=== PATIENT | male | born 1955 | race Caucasian/White ===

== ENCOUNTER 2020-03-08 10:34 | Inpatient (IN) | payer OTHER ==
[~2020-03-08] VITALS: Ht 172.7 cm; Wt 86.1 kg
[~2020-03-08 10:34] MED LIST: FELODIPINE ER10 MG PO; GLUCOPHAGE500 MG PO; HUMULIN N100 U/ML SC; HYDROCODONE-APA1 TAB PO; INDAPAMIDE2.5 MG PO; ZESTRIL20 MG PO; ZOCOR40 MG PO
[2020-03-08 11:02] LABS: BASOPHILS 0.2 % (0-2); EOSINOPHILS 0.8 % (0-7); HEMATOCRIT 26.8 % (42.0-54.0); HEMOGLOBIN 8.3 g/dL (13.5-17.5); IMMATURE GRANULOCYTES 0.4 % (0-5); LYMPHOCYTES 5.1 % (15-50); MCH 26.6 pg (26.0-34.0); MCV 85.9 fL (80.0-100.0); MEAN PLATELET VOLUME 10.6 fL (7.4-10.4); MONOCYTES 7.2 % (2-11); NEUTROPHILS 86.3 % (40-80); PLATELET COUNT 371 10x3/uL (130-400); RBC 3.12 10x6/uL (4.20-6.10); RDW 17.5 % (11.5-14.5); WBC 11.5 10x3/uL (4.8-10.8)
[2020-03-08 11:19] LABS: APTT 45.7 SECONDS (22.8-39.4); INR 1.02 (0.85-1.17); PROTIME 13.3 SECONDS (11.6-15.0)
[2020-03-08 11:22] VITALS: BP 138/61
[2020-03-08 11:39] LABS: ALBUMIN 3.1 g/dL (3.4-5.0); ALKALINE PHOSPHATASE 115 U/L (30-120); ALT (SGPT) 22 U/L (10-68); BILIRUBIN - TOTAL 0.59 mg/dL (0.2-1.3); CALCIUM 7.2 mg/dL (8.5-10.1); CARBON DIOXIDE 19.6 mmol/L (21.0-32.0); CHLORIDE - SERUM 91 mmol/L (98-107); CKMB 7.9 U/L (0.0-3.6); CREATINE KINASE 99 UL (21-232); CREATININE - SERUM 8.1 mg/dL (0.6-1.3); GLUCOSE 137 mg/dL (74-106); MAGNESIUM - SERUM 3.1 mg/dL (1.8-2.4); PROTEIN - SERUM 7.9 g/dL (6.4-8.2); SODIUM 130 mmol/L (136-145); THYROID STIMULATING HORMONE 1.56 uIU/mL (0.36-3.74); eGFR NON AFRICAN AMERICAN 7 mL/min (90-120)
[2020-03-08 11:41] LABS: CALC OSMOLALITY 296 mosm/kg (275-300); TROPONIN-I < 0.017 ng/mL (0.000-0.060)
[2020-03-08 11:42] LABS: POTASSIUM - SERUM 6.3 mmol/L (3.5-5.1); UREA NITROGEN 108 mg/dL (7-18)
--- NOTE | 2020-03-08 11:43 | NUR ---
CRITICAL LABS: BUN 108, K+ 6.3. DR VELA NOTIFIED.
[2020-03-08 12:30] VITALS: BP 130/43
[2020-03-08 13:02] VITALS: BP 120/37
[2020-03-08] MEDS ORDERED: NOVOLOG100 UNIT/1 SC (13:16)
[2020-03-08] MEDS ORDERED: PLAVIX75 MG PO (13:16)
[2020-03-08] MEDS ORDERED: NEURONTIN 300300 MG PO (13:17)
[2020-03-08] MEDS ORDERED: LEVEMIR IN100 UNITS/ SC (13:17)
[2020-03-08] MEDS ORDERED: HYDRALAZINE HCL25 MG PO (13:18)
[2020-03-08] MEDS ORDERED: BUMEX2 MG PO (13:18)
[2020-03-08] MEDS ORDERED: HCTZ25 MG PO (13:19)
[2020-03-08] MEDS ORDERED: TOPROL XL100 MG PO (13:19)
[2020-03-08] MEDS ORDERED: NORVASC10 MG PO (13:19)
[2020-03-08] MEDS ORDERED: COREG 3.1253.125 MG PO (13:20)
[2020-03-08] MEDS ORDERED: ULTRAM50 MG PO (13:20)
[2020-03-08] MEDS ORDERED: AZELASTINE137 MCG/0. NASAL (13:20)
[2020-03-08 14:03] VITALS: BP 135/52
--- NOTE | 2020-03-08 15:49 | NUR ---
REPORT GIVEN TO ROSENDO DEJESUS FROM DIALYSIS. SHE IS TAKING PT TO DIALYSIS AND THEN TO HIS ROOM.
--- NOTE | 2020-03-08 16:01 | NUR ---
RECEIVED REPORT FROM ER. PT TAKEN FROM ER TO DIALYSIS VIA .
--- NOTE | 2020-03-08 17:17 | NUR ---
SPOKE WITH PT'S OVER THE PHONE. MED REC AND HX COMPLETED. SHE STATES PT CURRENTLY HAS SHINGLES AND HAS BEEN ON VALTREX SINCE WEDNESDAY AND BODY IS SCABBED. JEREMIAH ROBBINS CALLED AND SPOKE WITH JOHN DOUBLE END TENONER OPERATOR AND SHE STATES PT DOES NOT NEED TO BE ON ISOLATION.
--- NOTE | 2020-03-08 18:44 | NUR ---
PT RETURNED FROM DIALYSIS. ARIANNA FROM DIALYSIS STATES PT HEMOSPLIT WAS RED AND HAD DRAINAGE AND SHE CALLED [facility] AND GOT BLOOD CULTURE ORDERS. SHE ALSO STATES SHE CHANGED RIGHT CHEST DRESSING. SHE STATES SHE REMOVED 2200 OFF.
[2020-03-08 20:30] VITALS: BP 135/47
--- NOTE | 2020-03-08 22:20 | NUR ---
FSBS 260; PT DECLINING HUMULIN AT THIS TIME, ONLY REQUESTING FOR 40 UNITS LANTUS, "BECAUSE OF MY BLOOD SUGAR BEING 260. I'D RATHER WE TREAT IT IN THE MORNING IF IT'S HIGH INSTEAD OF BOTTOMING OUT TONIGHT." 40 UNITS LANTUS AND PM MEDS ADMINISTERED, PER ORDER. DENIES ANY OTHER NEEDS AT THIS TIME. BED IN LOWEST, SRX2, CALL LIGHT WITHIN REACH. WILL CTM.
[2020-03-09] VITALS (7 sets, daily range): BP systolic 124–142; BP diastolic 52–81; BMI 31.8; BMI 31.7
[2020-03-09 05:10] LABS: BASOPHILS 0.3 % (0-2); EOSINOPHILS 2.9 % (0-7); HEMATOCRIT 23.6 % (42.0-54.0); IMMATURE GRANULOCYTES 0.3 % (0-5); LYMPHOCYTES 11.7 % (15-50); MCH 26.6 pg (26.0-34.0); MCHC 30.9 g/dL (31.0-37.0); MCV 86.1 fL (80.0-100.0); MEAN PLATELET VOLUME 10.4 fL (7.4-10.4); MONOCYTES 10.5 % (2-11); NEUTROPHILS 74.3 % (40-80); PLATELET COUNT 378 10x3/uL (130-400); RBC 2.74 10x6/uL (4.20-6.10); RDW 17.9 % (11.5-14.5)
[2020-03-09 05:11] LABS: HEMOGLOBIN 7.3 g/dL (13.5-17.5); WBC 6.5 10x3/uL (4.8-10.8)
[2020-03-09 05:51] LABS: ANION GAP 22.8 mmol/L (8-16); CALCIUM 7.4 mg/dL (8.5-10.1); CARBON DIOXIDE 20.3 mmol/L (21.0-32.0); MAGNESIUM - SERUM 2.9 mg/dL (1.8-2.4)
[2020-03-09 05:52] LABS: PHOSPHOROUS 10.2 mg/dL (2.5-4.9); POTASSIUM - SERUM 5.1 mmol/L (3.5-5.1)
--- NOTE | 2020-03-09 07:00 | NUR ---
BEDSIDE REPORT RECEIVED. SHIFT ASSESSMENT COMPLETED PER FLOWSHEET, SEE FLOWSHET FOR INFORMATION. PT WALKING FROM BATHROOM TO BED UPON ENTERING ROOM, PT THEN SITS DOWN ON BED FOR ASSESSMENT. PT STATES "I'VE NEVER TOLD ANYBODY THIS, I'VE GOT THE REAL BAD SHAKES. I DON'T KNOW WHY." EXPLAINED THAT I WOULD LET THE DOCTOR KNOW OF THAT AND HE CAN DISCUSS THAT WITH THE DOCTOR. PT AGREES. PT ALSO SIGNED A BLOOD CONSENT. WILL CONT TO MONITOR. NO ACUTE NEEDS/ DISTRESS/PAIN OR DISCOMFORT NOTED AT THIS TIME.
--- NOTE | 2020-03-09 12:26 | NUR ---
PCT ZEE NOTIFED NURSE OF [place] PILL CUT INTO FOURTHS FOUND ON THE FLOOR. PT DENIED KNOWLEDGE OF PILL. PILL DISCARDED INTO TRASH. WILL CONT TO MONITOR.
--- NOTE | 2020-03-09 19:00 | NUR ---
BEDSIDE REPORT RECEIVED, PT CARE ASSUMED. WROTE NAME ON BOARD. PT SITTING UP IN BED WATCHING TV, AAOX4. DENIES ANY NEEDS AT THIS TIME. BED IN LOWEST, SRX1, CALL LIGHT WITHIN REACH. WILL CTM.
[2020-03-10 00:30] VITALS: BP 134/49
[2020-03-10 04:30] VITALS: BP 157/63
--- NOTE | 2020-03-10 13:11 | NUR ---
PT REMAINS IN DILAYSIS AT THIS TIME. OCCULT STOOL COLLECTED. PT REQUESTED TO KNOW IF HE MIGHT GO HOME TOMORROW. ADVISED PT THIS WILL NEED TO BE DETERMINED BY MD. NO ACUTE DISTRESS PT TALKING TO FRIENDS/FAMILY ON HIS CELL PHONE, AMBULATED WITH STANDBY ASSIST TO BATHROOM THIS AM.
[2020-03-10 15:00] LABS: BILIRUBIN NEGATIVE (NEGATIVE); GLUCOSE NEGATIVE (NEGATIVE); KETONE NEGATIVE (NEGATIVE); NITRITE NEGATIVE (NEGATIVE); SPECIFIC GRAVITY 1.025 (1.005-1.020); UROBILINOGEN NORMAL (NORMAL)
[2020-03-10 15:11] VITALS: BP 124/60
[2020-03-10 15:26] LABS: UDS - AMPHET NEGATIVE QUAL (NEGATIVE); UDS - BARB NEGATIVE QUAL (NEGATIVE); UDS - BENZO NEGATIVE QUAL (NEGATIVE); UDS - COCAINE NEGATIVE QUAL (NEGATIVE); UDS - OPIATE POSITIVE QUAL (NEGATIVE); UDS - PCP NEGATIVE QUAL (NEGATIVE); UDS - THC NEGATIVE QUAL (NEGATIVE)
[2020-03-10 17:55] VITALS: BP 158/63
--- NOTE | 2020-03-10 19:30 | NUR ---
BEEN TO PT ROOM A FEW TIMES NOW PT IS ALERT AND MANY NEEDS SEEN TOO BED IS LOW AND LOCKED FE STILL INFUSING INTO VEIN CALL LIGHT IS WITH PT
[2020-03-10 20:30] VITALS: BP 146/81
[2020-03-11 04:30] VITALS: BP 126/52
--- NOTE | 2020-03-11 05:55 | NUR ---
opost d50 bs is 165
--- NOTE | 2020-03-11 06:02 | NUR ---
glucose now 140 pt waking up will offer juice
--- NOTE | 2020-03-11 06:06 | NUR ---
pt talking now and consuming juice
[2020-03-11 06:34] LABS: HEMATOCRIT 27.2 % (42.0-54.0); HEMOGLOBIN 8.6 g/dL (13.5-17.5); LYMPHOCYTES 14.7 % (15-50); MCH 27.6 pg (26.0-34.0); MCHC 31.6 g/dL (31.0-37.0); MCV 87.2 fL (80.0-100.0); NEUTROPHILS 73.8 % (40-80); PLATELET COUNT 384 10x3/uL (130-400); RBC 3.12 10x6/uL (4.20-6.10); WBC 9.3 10x3/uL (4.8-10.8)
[2020-03-11 06:47] LABS: ANION GAP 16.4 mmol/L (8-16); CARBON DIOXIDE 24.1 mmol/L (21.0-32.0); CREATININE - SERUM 4.5 mg/dL (0.6-1.3); POTASSIUM - SERUM 4.5 mmol/L (3.5-5.1)
--- NOTE | 2020-03-11 07:12 | NUR ---
pt is now completely alert states he will be sure to eat breakfast
[2020-03-11 09:51] VITALS: BP 170/56
--- NOTE | 2020-03-11 10:09 | NUR ---
REPORT RECIEVED. PT SITTING SEMI FOWLERS IN BED. RR EVEN AND UNLABORED ON 2L. HE HAS A R FA PIV THAT IS SL. BED LOCKED AND IN LOWEST POSITION,CALL LIGHT WITHIN REACH. WILL CTM.
[2020-03-11 13:18] VITALS: BP 128/59
--- NOTE | 2020-03-11 16:23 | NUR ---
I have reviewed this patient and I concur with the Shift Assessment completed by the Licensed Practical Nurse today this shift.
[2020-03-11 17:26] LABS: APTT 45.6 SECONDS (22.8-39.4); INR 1.03 (0.85-1.17); PROTIME 13.5 SECONDS (11.6-15.0)
--- NOTE | 2020-03-11 19:10 | NUR ---
PT IS BACJK FROM DIALYSIS AND UP ABOUT ROOM ALERT AND OX4 BED LOW AND LOCKED CALL LIGHT PROVIDED WILL GET CONSENTS SIGNED FOR TOMORROWS PROCEDURE
--- NOTE | 2020-03-11 20:15 | NUR ---
REFUSING BS CHECK AND INSULINES STATING HE IS NOT GOING TO BOTTOM OUT AGAIN
[2020-03-11 21:51] VITALS: BP 135/51
[2020-03-12] VITALS (57 sets, daily range): BP systolic 19–156; BP diastolic 38–76; Ht 172.7 cm; Wt 86.1 kg
--- NOTE | 2020-03-12 03:03 | NUR ---
I have reviewed this patient and I concur with the Shift Assessment completed by the Licensed Practical Nurse today this shift.
[2020-03-12 06:14] LABS: ANION GAP 17.3 mmol/L (8-16); CALCIUM 8.2 mg/dL (8.5-10.1); CARBON DIOXIDE 22.2 mmol/L (21.0-32.0); CREATININE - SERUM 4.3 mg/dL (0.6-1.3); POTASSIUM - SERUM 4.5 mmol/L (3.5-5.1)
--- NOTE | 2020-03-12 07:30 | NUR ---
REPORT RECIEVED. PT SITTING UP IN BED. RR EVEN AND UNLABORED ON 3.5L NC. PT HAS A R FA PIV THAT IS SL. HE IS A LEFT ARM RESERVE FOR A FUTURE FISTULA. HE HAS A R CHEST HEMO SPLIT. HE HAS BEEN NPO SINCE MIDNIGHT FOR A PROCEDURE WITH THIS MORNING. BED LOCKED AND IN LOWEST POSITION, CALL LIGHT WITHIN REACH. WILL CTM
--- NOTE | 2020-03-12 08:10 | NUR ---
PRE-OP MEDS GIVEN AND PT TAKEN TO SURGERY AT THIS TIME.
--- NOTE | 2020-03-12 09:33 | NUR ---
Nutrition follow-up: Pt to ICU from M2 s/p endarterectomy Remains NPO Labs reviewed PO intake pre-surgery of renal ADA diet was 100% x 3 meals Wt: 206# +BM RDN following.
--- NOTE | 2020-03-12 11:37 | NUR ---
PT ARRIVED IN THE UNIT. PT HOOKED TO ICU MONTITORS. FIRST DEGREE BLOCK NOTED. BP STABLE. PT ON CLEVIPREX AND PIOTR FOR BLOOD PRESSURE. RIGHT ANTERIOR NECK INCISION C/D/I. JABARI DRAIN NOTED AND COMPRESSED WITH BLOODY DRAINAGE NOTED. RIGHT SUBCLAVIAN HEMOSPLIT C/D/I. RIGHT RADIAL JANI NOTED WITH A GOOD WAVE FORM. WRIST PROTECTORE ON. FC NOTED WITH CLEAR, YELLOW URINE. TRACHEA MIDLINE. PT VERY RESTLESS AND BEING UNCORAPERATIVE AT THIS TIME. ATTEMPTED TO REORIENT THE PT. NO SUCESS. WILL STAY WITH PT FOR 1:1. CALL LIGHT IN [facility]. WILL CONT POC.
--- NOTE | 2020-03-12 11:50 | NUR ---
PT PLACED ON THE BIPAP.
--- NOTE | 2020-03-12 12:00 | NUR ---
PT VSS. WAKING UP AND STILL CONFUSED BUT MORE COOPERATIVE WILL CONT PO
--- NOTE | 2020-03-12 12:30 | NUR ---
PIOTR INITIATED AND CLEVIPREX AND NITRO OFF.
--- NOTE | 2020-03-12 12:53 | NUR ---
PIOTR TURNED OFF. PT AWAKE AND COOPERATIVE. PT SLIGHTLY DROWSEY. PT MOVING ALL EXTRIMITIES WITH NO ISSUES. FACE AND SMILE SYMTRICAL. TRACHEA MIDLINE. PT REMAINS ON BIPAP. CAME AND LEFT THE PTS BEDSIDE. WILL CONT POC.
--- NOTE | 2020-03-12 13:22 | NUR ---
SPOKE WITH DR ESTRADA'S NURSE, CHUY, ABOUT THE ABT. SHE STATED TO ASK MARIA TERESA. PHARMACY CALLED AND PHARMASIST STATED ITS OK FOR IV ANCEF TODAY AND TO ASK DR ESTRADA ABOUT TOMMORROW DOSE. OK FOR PO CLEOCIN.
--- NOTE | 2020-03-12 13:27 | NUR ---
PT AWAKE. VSS. BECOMING MORE AWAKE AND ALERT.
[2020-03-12 14:46] LABS: PLT FUNCT.(P2Y12) PLAVIX 252 PRU (194-418)
--- NOTE | 2020-03-12 16:29 | NUR ---
PT TAKEN OFF BIPAP AND PLACED ON 4L VIA NC. PT TOLERATING WELL. PT TOLERATING ICE CHIPS WELL. WILL CONT POC.
--- NOTE | 2020-03-12 16:54 | NUR ---
DR ESTRADA IN THE UNIT. OK TO GIVE PO LOPRESSOR NOW.
--- NOTE | 2020-03-12 19:00 | NUR ---
Tolerates assessment. No issues. Neuro checks intact. SR up x 2. Bed in low position with call light in reach.
--- NOTE | 2020-03-12 21:00 | NUR ---
No needs at this time. No changes noted. SR up x 2. Bed in low position. Call light in reach.
--- NOTE | 2020-03-12 23:00 | NUR ---
Resting without distress. SR up x 2. Bed low position. Call light in reach.
[2020-03-13] VITALS (95 sets, daily range): BP systolic 105–166; BP diastolic 40–85
--- NOTE | 2020-03-13 | NUR ---
No changes. Resting well. Call light in reach
--- NOTE | 2020-03-13 02:00 | NUR ---
RESTING QUIETLY. ALARMS WITH PARAMETERS SET TO HEMODYNAMIC MONITORS THIS SHIFT. VSS. SR UP X 2. BED IN LOW POSITION.
[2020-03-13 03:43] LABS: BASOPHILS 0.2 % (0-2); EOSINOPHILS 2.7 % (0-7); HEMATOCRIT 27.4 % (42.0-54.0); HEMOGLOBIN 8.5 g/dL (13.5-17.5); IMMATURE GRANULOCYTES 0.3 % (0-5); LYMPHOCYTES 8.2 % (15-50); MCH 27.1 pg (26.0-34.0); MCV 87.3 fL (80.0-100.0); MEAN PLATELET VOLUME 9.5 fL (7.4-10.4); NEUTROPHILS 79.6 % (40-80); PLATELET COUNT 385 10x3/uL (130-400); RBC 3.14 10x6/uL (4.20-6.10); RDW 16.8 % (11.5-14.5)
[2020-03-13 03:59] LABS: ANION GAP 17.1 mmol/L (8-16); CALCIUM 8.5 mg/dL (8.5-10.1); CREATININE - SERUM 5.1 mg/dL (0.6-1.3); POTASSIUM - SERUM 5.1 mmol/L (3.5-5.1)
--- NOTE | 2020-03-13 04:00 | NUR ---
RESTING WELL. SR UP X 2. CALL LIGHT IN REACH. BED IN LOW POSITION
--- NOTE | 2020-03-13 05:00 | NUR ---
RESTING WITH SR UP X 2. CALL LIGHT IN REACH
--- NOTE | 2020-03-13 07:00 | NUR ---
PT REPORT RECEIVED FROM ICT DEVELOPMENT MANAGER NURSE. NO ACUTE SIGNS OF DISTRESS NOTED. SHIFT ASSESSMENT COMPLETED. PT TRANSFERRED TO BEDSIDE CHAIR. TOLERATED WELL. SLIGHT WEAKNESS NOTED. WILL CONTINUE TO MONITOR
--- NOTE | 2020-03-13 08:37 | NUR ---
DR ESTRADA IN ROOM. UPDATE GIVEN. NEW ORDER RECEIVED TO D/C ARTERIAL LINE AND KEITH. WANTS PT BACK IN BED AFTER BREAKFAST TO REMOVE JABARI DRAIN.
--- NOTE | 2020-03-13 09:13 | OP ---
PATIENT NAME: FLORIDALMA LIMA MEDICAL RECORD: [id number] :55 LOCATION[facility] [id number] ADMISSION DATE:03/10/20 SURGEON: ENRICO ESTRADA MD DATE OF OPERATION: 03/12/2020 SURGEON: Enrico Estrada MD STRAIGHTENER: Dino Mullins MD PROCEDURE PERFORMED: Right carotid endarterectomy. PREOPERATIVE DIAGNOSIS: Right carotid stenosis with syncope. POSTOPERATIVE DIAGNOSIS: Right carotid stenosis with syncope. ANESTHESIA: General endotracheal anesthesia. ESTIMATED BLOOD LOSS: 10 cc. COMPLICATIONS: None. SPECIMENS: Carotid plaque. CONDITION: Stable. DISPOSITION: ICU. OPERATIVE FINDINGS: 1. Thick neck. 2. Upward retraction on the hypoglossal nerve for exposure of the distal internal carotid. 3. Discrete near circumferential calcification of the internal carotid and extended about 2 cm up, but the plaque feathered well and a CorMatrix patch was used for closure. 4. Neurologically intact to recovery room, no change of EEG during the case. INDICATIONS: The patient with 2 episodes of syncope and severe right carotid stenosis. DESCRIPTION OF PROCEDURE: The patient was brought to the operating suite. General anesthesia was obtained, the patient prepped and draped. An oblique incision made in the right neck, taken down through subcutaneous tissue and muscle layers. The common carotid was dissected out. Two large facial venous branch were divided between ligatures and suture ligatures. The common carotid was dissected out and encircled with a loop. The external carotid and thyroid branch were dissected out, encircled with vessel loops. The hypoglossal nerve was over the internal carotid; therefore, the ANSA was clipped and divided allowing upward retraction of the hypoglossal nerve and upward retraction of his jaw to expose the distal internal carotid, which was soft. Heparin was given. After heparin circulated backbleeding of the internal carotid was controlled with a bulldog clamp. Backbleeding on the external carotid and thyroid branch were controlled with the vessel loops and inflow was controlled with a vascular clamp. EEG remained normal and the cerebral oximetry initially fell, but responded to increasing the blood pressure to 140-160 systolic. After opening the carotid artery, excellent back bleeding from the internal carotid was noted. OPERATIVE REPORT [id number] FLORIDALMA LIMA The arteriotomy begun in the common carotid artery taken out to the region of plaque into a region of normal internal carotid. The plaque was divided and the common carotid with an eversion endarterectomy of the external carotid and then distally, the plaque feathered well. Thorough irrigation was taken. All bits of loose debris were removed. A CorMatrix patch was fashioned to appropriate size and sutured along the edge of the arteriotomy and prior to completion of the anastomosis, backbleeding was off all 3 major vessels and the endarterectomy bed was again thoroughly flushed and anastomosis completed, flow restored first to the external carotid and then to the internal carotid. Interrupted sutures were used for bleeding sites. Protamine was given. Thorough irrigation was undertaken. A drain was placed through a separate stab wound. Neck was closed in 3 layers including Dermabond on the skin. Anesthesia reversed. The patient was neurologically intact to ICU. TRANSINT:[id number] Voice Confirmation ID: [id number] DOCUMENT ID: [id number] ENRICO ESTRADA MD at 0913 CC: ISABEL LEWIS DO [id number] DICTATION DATE: 03/12/20 1147 ELECTRICAL INSTRUMENT REPAIRER: 03/12/20 2156 ADM IN [facility] [address] [place] [address]
--- NOTE | 2020-03-13 09:42 | NUR ---
KEITH AND ARTERIAL LINE D/C. PT TOLERATED WELL. WILL CONTINUE TO MONITOR
--- NOTE | 2020-03-13 11:00 | NUR ---
PT RESTING IN BED. NO ACUTE SIGNS OF DISTRESS NOTED. HELPED PT UP IN CHAIR TO EAT LUNCH. TOLERATED WELL. STILL LITTLE WEAK. REASSESSMENT COMPLETED. WILL CONTINUE TO MONITOR
--- NOTE | 2020-03-13 13:45 | NUR ---
DR ESTRADA IN ROOM. PULLED JABARI DRAIN FROM RT NECK. PT TOLERATED WELL. BLEEDING NOTED. DR ESTRADA HOLDING PRESSURE. BLEEDING NOT SLOWING SO DR ESTRADA PLACED SUTURE IN DRAIN SITE. LEFT CEA OPEN TO AIR. ELASTIC TAPE WITH GAUZE PLACED ON SUTURE SITE. DR ESTRADA STATED THAT IF PT BEGINS BLEEDING AGAIN DURING DIAYLYSIS TO NOTIFY HIM. WILL CONTINUE TO MONITOR
--- NOTE | 2020-03-13 13:48 | NUR ---
RT IN ROOM. BIPAP ALARM GOING OFF. NEW LARGE MASK OBTAINED AND PLACED ON PT. NO AIRLEAK NOTED. WILL CONTINUE TO MONITOR. PT OFF BIPAP RESTING WITH NASAL CANNULA NOW.
--- NOTE | 2020-03-13 15:00 | NUR ---
PT RESTING IN BED. REASSESSMENT COMPLETED. NO COMPLAINTS NOTED AT THIS TIME. WAITING FOR DIALYSIS. WILL CONTINUE TO MONITOR
--- NOTE | 2020-03-13 17:06 | NUR ---
HEMOSPLIT WILL PUSH, BUT UNABLE TO PULL FROM EITHER SIDE, UNABLE TO DO DIALYSIS. OBTAINED ORDER FOR ACTIVASE, DWELL FOR 30 MIN AND ATTEMPT HD AGAIN.
--- NOTE | 2020-03-13 17:42 | NUR ---
DIALYSIS NURSE IN ROOM. GIVING ACTIVASE TO OPEN HD LINE. WILL CONTINUE TO MONITOR
--- NOTE | 2020-03-13 18:22 | NUR ---
SPOKE WITH DR LEWIS ABOUT PT HYPOGLYCEMIA. STATED TO ON GIVE MAX OF 10 UNITS OF INSULIN AT BEDTIME. IF BLOOD SUGAR IS IN 150'S RANGE DO NOT GIVE LANTUS. WILL NOTIFY DR LEWIS OF BLOOD SUGAR RECHECK. WILL CONTINUE TO MONITOR
--- NOTE | 2020-03-13 18:35 | NUR ---
DO NOT GIVE ANY MEDS THROUGH THE HEMOSPLIT PER DIALYSIS NURSE. SHE HAS ACTIVASE IN LINES TO HELP OPEN THEM UP.
--- NOTE | 2020-03-13 18:47 | NUR ---
DWELLED ACTIVASE FOR 30 MIN IN EACH LUMEN OF HEMOSPLIT, STILL UNABLE TO PERFORM DIALYSIS, SPOKE TO DR. LEWIS, ORDERED ACTIVASE TO DWELL OVERNIGHT AND ATTEMPT HD AGAIN TOMORROW.
--- NOTE | 2020-03-13 19:00 | NUR ---
assessment complete. Bed in low position. SR up x 2. See IV flow sheet for infusing medications to right forearm. Call light in reach. Patient lungs with crackles. Will notify .
--- NOTE | 2020-03-13 19:15 | NUR ---
DR LEWIS REPLIED TO TEXT ABOUT PT BLOOD SUGAR RECHECK. ORDER RECEIVED TO NOT GIVE LANTUS IF BLOOD SUGAR IS LESS THAN 150. RELAYED TO PRACTICE OFFICE ASSOCIATE NURSE ART.
--- NOTE | 2020-03-13 19:18 | NUR ---
ACTIVASE DWELLING TO BOTH LUMENS OF PATIENT'S DIALYSIS LINE, WRAPPED IN GUAZE AND TAPE AND LABELED "ACTIVASE."
--- NOTE | 2020-03-13 21:00 | NUR ---
SR x2. pt in low position. Alarms on and set. Call light in reach. No change since previous assessment.
--- NOTE | 2020-03-13 23:00 | NUR ---
Resting with VSS. IV infusion. See IV Flow Sheet. Alarms on with parameters set. Bed in low position with call light in reach.
[2020-03-14] VITALS (87 sets, daily range): BP systolic 114–175; BP diastolic 40–89
--- NOTE | 2020-03-14 01:00 | NUR ---
IV catheter dislodged from Right forearm during repositioning. 20 gauge Catheter intact. Inserted new 20 gauge IV catheter to right wrist x 1 attempt. Tolerates well. SR up x 2. Bed in low position.
--- NOTE | 2020-03-14 02:00 | NUR ---
NO CHANGE IN ASSESSMENT. BED IN LOW POSITION. SR UP X 2 CALL LIGHT IN REACH
--- NOTE | 2020-03-14 03:00 | NUR ---
RESTING WITHOUT COMPLAINTS. SR UP X 2 BED IN LOW POSITION. CALL LIGHT IN REACH.
--- NOTE | 2020-03-14 05:00 | NUR ---
RESTING WITH NO DISTRESS NOTED. SR UP X 2. LABS DRAWN. BED IN LOW POSITION. CALL LIGHT IN REACH
[2020-03-14 05:34] LABS: ANION GAP 17.5 mmol/L (8-16); CALCIUM 8.9 mg/dL (8.5-10.1); CARBON DIOXIDE 22.1 mmol/L (21.0-32.0); CREATININE - SERUM 5.8 mg/dL (0.6-1.3); POTASSIUM - SERUM 4.6 mmol/L (3.5-5.1)
--- NOTE | 2020-03-14 07:36 | NUR ---
Nutrition follow-up: Pts diet changed to renal ADA consistent CHO due to elevated PO4. PO intake ~50% of last 3 meals Unable to perform dialysis 03/13 2/2 lines would not draw; attempting today Wt: 201# Last BM charted 03/09; will inform nurse RDN following.
--- NOTE | 2020-03-14 08:00 | NUR ---
PT LYING IN BED AWAKE AND CONFUSED AT THIS TIME. PT ALERT TO SELF ONLY, REORIENTATION PROVIDED. PT STATED HE THOUGHT HE WAS IN [facility], THAT IT IS 2013, AND HE IS HERE BECAUSE OF A FALL. WHEN REORIENTATION WAS PROVIDED PT NODDED HEAD AND STATED, "OH, OKAY." PT ALSO AT THIS TIME C/O NEEDING TO URINATE AND WAS ATTEMPTING TO GET OUT OF BED UNASSISTED TO FIND A BATHROOM. PT ASSISTED BACK IN BED, TOTAL LINEN CHANGE PROVIDED. URINAL PROVIDED. PT NOW LYING IN BED CALM. DR LEWIS AT BEDSIDE, ORDERS RECIEVED. WILL CONTINUE PLAN OF CARE.
--- NOTE | 2020-03-14 08:45 | NUR ---
PT SITTING UP IN BED 90 DEGREES. ADMIN MEDS CRUSHED IN APPLESAUCE, PT TOLERATED WELL. THEN GAVE PT A SIP OF WATER, HE NOTED TO HAVE MUCH COUGHING AFTER SIP OF WATER. PT ABLE TO COUGH UP SOME OF THE WATER WITH ASSIST FROM YAUNKER. DR LEWIS NOTIFIED OF THIS, ORDERS RECIEVED FOR CHEST XR, SPEECH SWALLOW EVAL, ABG. ALSO NOTED WILL HOLD PTS MEALS UNTIL SWALLOW EVAL. ALSO WILL HOLD LANTUS PER DR LEWIS ORDERS. VSS. WILL CONTINUE PLAN OF CARE.
[2020-03-14 09:46] LABS: BASOPHILS 0.2 % (0-2); EOSINOPHILS 1.5 % (0-7); HEMATOCRIT 25.7 % (42.0-54.0); HEMOGLOBIN 7.9 g/dL (13.5-17.5); IMMATURE GRANULOCYTES 0.2 % (0-5); LYMPHOCYTES 6.2 % (15-50); MCH 27.6 pg (26.0-34.0); MCHC 30.7 g/dL (31.0-37.0); MEAN PLATELET VOLUME 10.6 fL (7.4-10.4); NEUTROPHILS 80.9 % (40-80); PLATELET COUNT 418 10x3/uL (130-400); RBC 2.86 10x6/uL (4.20-6.10); RDW 17.4 % (11.5-14.5)
[2020-03-14 09:49] LABS: MCV 89.9 fL (80.0-100.0); WBC 18.8 10x3/uL (4.8-10.8)
--- NOTE | 2020-03-14 10:15 | NUR ---
PER DR LEWIS, WILL HD TODAY. NO ACUTE DISTRESS NOTED. PT STATES HE NEEDS TO URINATE, URINAL PROVIDED, NO VOID NOTED. DR LEWIS NOTIFIED. WILL CONTINUE PLAN OF CARE.
--- NOTE | 2020-03-14 11:21 | NUR ---
SPEECH THERAPIST IN ROOM PERFORMING SWALLOW EVAL.
--- NOTE | 2020-03-14 11:26 | NUR ---
PER SPEECH, KEEP PT NPO.
--- NOTE | 2020-03-14 11:35 | NUR ---
UNABLE TO GIVE ANY PO MEDS SINCE PT NPO AFTER SPEECH SWALLOW EVAL.
--- NOTE | 2020-03-14 13:49 | NUR ---
SITTING UP IN BED RESTING AT THIS TIME. RESPIRATIONS STEADY AND UNLABORED. AWAKENS EASILY WHEN SPOKEN TO. FAMILY AT BEDSIDE. VSS. WILL CONTINUE PLAN OF CARE.
--- NOTE | 2020-03-14 15:12 | NUR ---
UP IN CHAIR RECIEVING DIALYSIS AT THIS TIME. NO ACUTE DISTRESS NOTED. VSS. CLEVIPREX TITRATED TO ORDER. SEE IV FLOWSHEET. WILL CONTINUE PLAN OF CARE.
--- NOTE | 2020-03-14 16:29 | NUR ---
PT NOTED TO SLIDE DOWN IN CHAIR AT THIS TIME. ASSISTED BACK UP IN CHAIR WITH ASSIST FROM OTHER STAFF MEMBERS. PT NOW SITTING UP IN CHAIR. DENIES ANY NEEDS. SPOKE WITH PTS ON PHONE AFTER CALL IN CODE VERIFIED, UPDATES PROVIDED. NO ACUTE DISTRESS NOTED. WILL CONTINUE PLAN OF CARE.
[2020-03-14 17:28] LABS: MAGNESIUM - SERUM 2.2 mg/dL (1.8-2.4); POTASSIUM - SERUM 3.4 mmol/L (3.5-5.1)
--- NOTE | 2020-03-14 17:46 | NUR ---
NOTED PT TO START TO SHOW PVC ON EKG. K RECHECKED AND NOTED AT 3.4. PER DR LEWIS, ADMIN 20MEQ K IV. WILL CONTINUE PLAN OF CARE.
--- NOTE | 2020-03-14 18:42 | NUR ---
ASSISTED BACK TO BED FROM BEDSIDE CHAIR. PT REQUESTED TO USE TOILET, NOTED 5ML FARHANA URINE. EKATERINA CARE PROVIDED. PT SITTING UP IN BED. DENIES ANY NEEDS. WILL CONTINUE PLAN OF CARE.
--- NOTE | 2020-03-14 19:20 | NUR ---
PT ALERT, CONFUSED, O2 @ 4L VIA N/C, LUNGS WITH CRACKLES, RIGHT HAND PIV INTACT WITH PLASMALYTE @ KVO, INCONTINENT OF URINE, SCD'S TO BILAT LOWER LEGS, VITALS STABLE
--- NOTE | 2020-03-14 21:00 | NUR ---
SON PRESENT AT BEDSIDE, PT REQUESTS BIPAP AFTER MEDS GIVEN, WILL CONT TO MONITOR
--- NOTE | 2020-03-14 23:15 | NUR ---
PT SLEEPING WITH BIPAP IN USE, NO DISTRESS NOTED
[2020-03-15] VITALS (22 sets, daily range): BP systolic 97–144; BP diastolic 37–59
--- NOTE | 2020-03-15 03:00 | NUR ---
PT AWAKE, TRYING TO GET UP, STATES HE NEEDS TO VOID, REMINDED PT TO USE CALL LIGHT FOR ASSIST, ASSISTED TO SIDE OF BED, VOIDED 200CC, RETURNED TO BED WITH N/C IN USE
--- NOTE | 2020-03-15 05:00 | NUR ---
PT BATHED PER STAFF, ASSISTED UP TO CHAIR AT BEDSIDE, RT PRESENT, PT PULLED 1100 ON I.S., NO DISTRESS NOTED
[2020-03-15 05:46] LABS: ANION GAP 17.3 mmol/L (8-16); CALCIUM 8.7 mg/dL (8.5-10.1); CARBON DIOXIDE 24.2 mmol/L (21.0-32.0); CREATININE - SERUM 4.6 mg/dL (0.6-1.3); VANCOMYCIN - RANDOM 9.9 ug/mL (10.0-20.0)
[2020-03-15 05:53] LABS: POTASSIUM - SERUM 4.5 mmol/L (3.5-5.1)
--- NOTE | 2020-03-15 07:52 | NUR ---
PT SITTING UP IN CHAIR. ASSISTED WITH REPOSITIONING AND ADDED A THICK PADDING TO CHAIR. PT STATES THAT HE IS MORE COMFORTABLE.
--- NOTE | 2020-03-15 10:43 | NUR ---
ST HERE ON ROUNDS THIS AM. ST RECOMENDATIONS TO KEEP STRICT NPO.
--- NOTE | 2020-03-15 11:16 | NUR ---
Nutrition Follow-up: POD [address] recs strict NPO with NGT for nutrition and meds. HD yesterday. Diet: NPO Wt: 197.3# (03/15); 205.1# (03/12) Last recorded BM: 03/08 Labs noted: Na 135, K+ 4.5, Glu 132 Meds noted: Protonix, Colace, Phoslo -If pt to remain NPO, rec start Nepro @ 20 and increase slowly to goal rate of 45 with flushes per MD. -Monitor wt. -RD following.
--- NOTE | 2020-03-15 11:23 | NUR ---
ASSISTED PT TO BSC FOR BM. NO BM. ASSISTED TO BED FOR HD NURSE IS HERE.
--- NOTE | 2020-03-15 12:41 | NUR ---
DR GONZALEZ HERE ON ROUNDS.
--- NOTE | 2020-03-15 14:31 | NUR ---
HD IN PROGRESS. PT ALVIN WELL.
--- NOTE | 2020-03-15 15:35 | NUR ---
HD COMPLETE. 2.5 L TAKEN OFF DURING HD. PT OOB TO BSC FOR BM.
--- NOTE | 2020-03-15 16:16 | NUR ---
Rehab Prescreening Consult recieved and the chart has been reviewed. He is [employer] insurance and will require a preauth. He will need a PT and an OT eval before information can be submitted for insurance review. Shanon Kyle RN Clinical liaison, Rehab
--- NOTE | 2020-03-15 16:51 | NUR ---
JHONNY 12FR TO Lia ORANTES. CHRISSIE ORDERED.
--- NOTE | 2020-03-15 21:00 | NUR ---
EVENING MEDS GIVEN ORDERED, MEDS THAT COULD BE WERE PLACED DOWN DOBHOFF, FSBS 205, 50 UNITS LANTUS GIVEN SUBQUE TO RIGHT ARM, PT TOLERATED WELL, BP STABLE, PT DENIES PAIN OR NEEDS, WILL MONITOR CLOSELY FOR CHANGES.
--- NOTE | 2020-03-15 23:45 | NUR ---
REASSESSMENT COMPLETED, RT AT BS PLACING PATIENT ON BIPAP @ 28%, PT TOLERATED WELL, ROUTINE MEDS GIVEN AT THIS TIME, WILL MONITOR FOR CHANGES.
[2020-03-16] VITALS (24 sets, daily range): BP systolic 101–165; BP diastolic 42–80
--- NOTE | 2020-03-16 | NUR ---
PT REQUESTING TO SIT UP IN BED, RAISED HOB, PT WANTING BIPAP MASK REMOVED, STATES " I AM CHOKING", WET SOUNDING COUGH NOTED WITH BIPAP OFF AND 4 LITERS NC REAPPLIED, PT WANTS TO SIT ON SIDE OF BED FOR NOW, BS TABLE IN FRONT OF PT, INSTRUCTED TO CALL BEFORE ATTEMPTING TO LAY BACK DOWN, VERBALIZES UNDERSTANDING, CALL LIGHT IN REACH.
--- NOTE | 2020-03-16 00:15 | NUR ---
PT ASSISTED UP TO BSC, CALL LIGHT IN REACH.
--- NOTE | 2020-03-16 00:40 | NUR ---
PT ASSISTED BACK TO BED AFTER MEDIUM FORMED BM, REPOSITIONED UP IN BED FOR COMFORT, PT DENIES NEEDS, SR UP X 2, BED IN LOW POSITION, CALL LIGHT IN REACH.
--- NOTE | 2020-03-16 03:00 | NUR ---
REASSESSMENT COMPLETED, PT RESTING ON BIPAP AT 28%, BP STABLE, NO CHANGES FROM PREVIOUS ASSESSMENT.
--- NOTE | 2020-03-16 05:45 | NUR ---
PT REQUESTING TO GET OOB TO CHAIR, REFUSED A BATH AT THIS TIME, ASSISTED X 1 TO CHAIR, CLEAN YANKEUR AND SPUTUM CULTURE CONTAINER GIVEN TO PT TO PROVIDE A SPUTUM SAMPLE, WARM BLANKET PROVIDED, CALL LIGHT IN REACH.
[2020-03-16 06:25] LABS: BASOPHILS 0.4 % (0-2); EOSINOPHILS 1.8 % (0-7); HEMATOCRIT 29.1 % (42.0-54.0); HEMOGLOBIN 8.6 g/dL (13.5-17.5); IMMATURE GRANULOCYTES 0.3 % (0-5); LYMPHOCYTES 8.6 % (15-50); MCHC 29.6 g/dL (31.0-37.0); MCV 91.2 fL (80.0-100.0); MEAN PLATELET VOLUME 10.4 fL (7.4-10.4); MONOCYTES 8.8 % (2-11); NEUTROPHILS 80.1 % (40-80); PLATELET COUNT 454 10x3/uL (130-400); RBC 3.19 10x6/uL (4.20-6.10); RDW 17.3 % (11.5-14.5); WBC 13.9 10x3/uL (4.8-10.8)
[2020-03-16 06:40] LABS: CALCIUM 8.6 mg/dL (8.5-10.1); CARBON DIOXIDE 26.3 mmol/L (21.0-32.0); CREATININE - SERUM 4.8 mg/dL (0.6-1.3); POTASSIUM - SERUM 4.3 mmol/L (3.5-5.1); VANCOMYCIN - RANDOM 15.1 ug/mL (10.0-20.0)
--- NOTE | 2020-03-16 07:45 | NUR ---
UP IN CHAIR. SEE FLOWSHEET FOR ASSESSMENT.
--- NOTE | 2020-03-16 07:45 | NUR ---
IV R WRIST ERYTHEMATOUS. IV STARTED IN R HAND ON 1ST ATTEMPT WITH 2OG. SITE DRESSED WITH TEGADERM.
--- NOTE | 2020-03-16 11:15 | NUR ---
ASSISTED TO BEDSIDE COMMODE. BM. ASSISTED BACK TO BED. BUTTOCKS ERYTHEMATOUS.
--- NOTE | 2020-03-16 15:00 | NUR ---
ASSISTED UP TO CHAIR. AMBULATES WITH MINIMAL ASSISTANCE.
--- NOTE | 2020-03-16 17:29 | NUR ---
FULL STRENGTH NEPRO STARTED VIA DOBHOFF AT 10CC/HR.
--- NOTE | 2020-03-16 19:20 | NUR ---
REPORT REC'D AND CARE ASSUMED, REC'D PT RESTING IN BED WATCHING TV, AWAKE, ALERT, AND ORIENTED X 3, DISORIENTED TO CURRENT YEAR, BUT KNEW HIS WIFES BIRTHDAY IS TOMORROW, RIGHT HAND PIV SALINE LOCKED, BLOODY DRAINAGE NOTED UNDER DRSG, RIGHT NECK INCISION OPEN TO AIR, NO DRAINAGE NOTED, CM-SR, PT DENIES PAIN OR NEEDS.
--- NOTE | 2020-03-16 21:00 | NUR ---
PT ASSISTED UP TO BATHROOM, PT THOUGHT HE NEEDED TO HAVE A BOWEL MOVEMENT, BUT PASSED GAS ONLY, BACK TO BE AND REPOSITIONED UP FOR COMFORT, PT COMPLAINS OF A SORE THROAT, EVENING MEDS GIVEN WITH TRAMADOL FOR PAIN, PT DENIES FURTHER NEEDS, SR UP X 2, CALL LIGHT IN REACH.
--- NOTE | 2020-03-16 23:00 | NUR ---
REASSESSMENT COMPLETED, PT WANTING BIPAP OFF FOR BREAK, PT STATES HE IS LEGALLY BLIND AND HAS HARD TIME FINDING THE CALL LIGHT, ALONZO, AND BED CONTROL, CALL LIGHT UNDER PT'S SIDE, PLACED IN PT'S HAND ALONG WITH ALONZO, SHOWED PT WHERE ON SR BEDCONTROL FUCTION REMOTE WAS LOCATED, BIPAP REAPPLIED, PT DENIES FURTHER NEEDS.
[2020-03-17] VITALS (24 sets, daily range): BP systolic 94–164; BP diastolic 34–77
--- NOTE | 2020-03-17 01:00 | NUR ---
NO CHANGES IN STATUS AT THIS TIME.
--- NOTE | 2020-03-17 03:45 | NUR ---
REASSESSMENT COMPLETED, RADIOLOGY AT BEDSIDE FOR AM CXR, PT REPOSITIONED IN BED FOR COMFORT, REMAINS ON BIPAP, DENIES NEEDS, SR UP X 2 , CALL LIGHT AND YANKEUR IN HAND.
--- NOTE | 2020-03-17 06:30 | NUR ---
PT ASSISTED UP TO BATHROOM, PT COMPLAINS OF FEELING DIZZY AND NOT STEADY ON FEET THIS AM, BP 114/61, PT ATTEMPTED TO VOID WITH NO RESULT, ASSISTED TO CHAIR FOR BREAKFAST, CALL LIGHT, YANKEUR, AND CELL PHONE IN REACH, PT DENIES OTHER NEEDS.
[2020-03-17 06:47] LABS: BASOPHILS 0.2 % (0-2); EOSINOPHILS 3.2 % (0-7); HEMATOCRIT 29.5 % (42.0-54.0); HEMOGLOBIN 8.9 g/dL (13.5-17.5); IMMATURE GRANULOCYTES 0.4 % (0-5); LYMPHOCYTES 6.9 % (15-50); MCH 27.2 pg (26.0-34.0); MCHC 30.2 g/dL (31.0-37.0); MCV 90.2 fL (80.0-100.0); MEAN PLATELET VOLUME 10.5 fL (7.4-10.4); MONOCYTES 7.1 % (2-11); NEUTROPHILS 82.2 % (40-80); PLATELET COUNT 428 10x3/uL (130-400); RBC 3.27 10x6/uL (4.20-6.10); WBC 14.8 10x3/uL (4.8-10.8)
[2020-03-17 07:17] LABS: ANION GAP 19.5 mmol/L (8-16); CALCIUM 8.7 mg/dL (8.5-10.1); CARBON DIOXIDE 25.5 mmol/L (21.0-32.0); VANCOMYCIN - RANDOM 13.2 ug/mL (10.0-20.0)
[2020-03-17 07:44] LABS: CREATININE - SERUM 6.3 mg/dL (0.6-1.3)
--- NOTE | 2020-03-17 13:32 | NUR ---
AREA NOTED TO GREAT TOE ON R FOOT. TOE APPEARS EDEMATOUS AND ERYTHEMATOUS. AREA OF OLD BREAKDOWN NOTED. STATED HE HAS GONE TO A WOUND CARE MD IN THE PAST FOR THIS SPECIFIC TOE. WOUND CONSULT PLACED AND WOUND CARE NURSE CALLED AND VOICE MAIL LEFT.
--- NOTE | 2020-03-17 19:25 | NUR ---
PT RECEIVED WITH EYES OPEN AND CHEST RISING. ON N/C 2LPM TOLERATING WELL. NGT WITH NEPRO AT 30MLH. HOB 30 DEGREES. PT DENIES PAIN. CONFUSION NOTED TO PLACE TIME. PT NPO. ORAL CARE PROVIDED. CALL LIGHT IN REACH. WILL CONTINUE TO OBSERVE.
--- NOTE | 2020-03-17 21:57 | NUR ---
CONFUSION CONTINUES. NO NEEDS MADE KNOWN AT THIS TIME. MEDICATIONS GIVEN PER MAR. FSBS 147. WILL CONTINUE TO OBSERVE.
--- NOTE | 2020-03-17 23:30 | NUR ---
PT WITH EYES CLOSED AND CHEST RISING. EASILY AWOKEN TO VERBAL STIMULI. CONFUSION NOTED. CALL LIGHT IN REACH. WILL CONTINUE TO OBSERVE.
[2020-03-18] VITALS (24 sets, daily range): BP systolic 104–167; BP diastolic 48–69
--- NOTE | 2020-03-18 01:20 | NUR ---
PT USES CALL LIGHT. CONFUSED NEEDED REMINDED OF PLACE AND TIME. NO S/S OF DISTRESS.
[2020-03-18 05:08] LABS: BASOPHILS 0.2 % (0-2); EOSINOPHILS 3.8 % (0-7); HEMATOCRIT 28.6 % (42.0-54.0); HEMOGLOBIN 8.7 g/dL (13.5-17.5); IMMATURE GRANULOCYTES 0.2 % (0-5); LYMPHOCYTES 4.6 % (15-50); MCH 26.9 pg (26.0-34.0); MCHC 30.4 g/dL (31.0-37.0); MCV 88.3 fL (80.0-100.0); MEAN PLATELET VOLUME 10.3 fL (7.4-10.4); MONOCYTES 12.3 % (2-11); NEUTROPHILS 78.9 % (40-80); PLATELET COUNT 413 10x3/uL (130-400); RBC 3.24 10x6/uL (4.20-6.10); RDW 16.8 % (11.5-14.5); WBC 15.2 10x3/uL (4.8-10.8)
[2020-03-18 05:31] LABS: ANION GAP 19.3 mmol/L (8-16); CALCIUM 8.4 mg/dL (8.5-10.1); CARBON DIOXIDE 25.2 mmol/L (21.0-32.0); CREATININE - SERUM 7.7 mg/dL (0.6-1.3); POTASSIUM - SERUM 4.5 mmol/L (3.5-5.1); VANCOMYCIN - RANDOM 22.2 ug/mL (10.0-20.0)
--- NOTE | 2020-03-18 06:40 | NUR ---
SPOKE WITH ONCALL RENAL PHYSICIAN AND REPORTED SBP > 160. GAVE ORDER TO GIVE SCHEDULED LOPRESSOR AND APRESALINE NOW.
--- NOTE | 2020-03-18 07:45 | NUR ---
SHIFT REPORT RECEIVED. PT UP IN CHAIR. CONFUSED. ON 4L OF O2 VIA NC. HAS PIV TO RIGHT HAND SL. DOBHOFF TO LEFT NARE WITH NEPRO AT 35ML/HR. INCISION TO RIGHT NECK NOTED. EDAMA ON RIGHT SIDE OF NECK. CALL LIGHT IN REACH. WILL CONTINUE TO MONITOR.
--- NOTE | 2020-03-18 12:20 | NUR ---
Nutrition Follow-up: Pt remains NPO per ST recs. Noted Nepro started per Dr. Arriola; nursing reports pt tolerating TF @ goal rate. Diet: Nepro - goal rate 35 mL/hr Wt: 189.5# (03/17); 193# (03/16); 200.6# (03/14); 205.1# (03/12) Last BM: 03/16 per chart Labs noted: K+ 4.5, Ca 8.4 Meds noted: Protonix, Lantus, Humalog -TF managed by MD; rec increase goal rate to 45 mL/hr. -Monitor wt. -RD following.
--- NOTE | 2020-03-18 14:33 | NUR ---
Right great toe, #2, #3 and #4 have dark scabbed areas on tips. Upon assessment it is noted that these scabs are dry peeling skin with pink healthy skin underneath. Recommended using moisturizer daily to soften skin and relieve dryness.
--- NOTE | 2020-03-18 18:00 | NUR ---
PT CURRENTLY ON DIALYSIS. PT HAS BEEN CONSTANTLY CONFUSED THROUGHT OUT THE DAY. SON HAS BEEN CONCERN THAT SOMETHING HAS HAPPENED OVER THE WEEKEND THAT HAS MADE HIM CONFUSED. WHEN IN CHAIR PT NEEDS CONSTANT REPOSITIONING. PHYSICAL THERAPY SAID PT IS TOTAL ASSIST WHEN MOVING FROM CHAIR TO BED. PT DOES NOT STAND VERY WELL. HAS BEEN ON 4L O2 VIA NC. PULLS ABOUT 500 ON I.S. NO FURTHER NEEDS. WILL CONTINUE TO MONITOR.
--- NOTE | 2020-03-18 19:20 | NUR ---
PT RECEIVED, DURING DIALYSIS. TOLERATING WELL. CONFUSION NOTED. WILL CONTINUE TO OBSERVE.
--- NOTE | 2020-03-18 20:30 | NUR ---
TUBE FEEDING BAG CHANGED.
--- NOTE | 2020-03-18 21:45 | NUR ---
DIALYSIS COMPLETED. NURSE REPORTS REMOVING 2.5LITERS. PT TOLERATED WELL.
--- NOTE | 2020-03-18 23:50 | NUR ---
RESTING WITH EYES CLOSED AND CHEST RISING. EASILY AWOKEN TO VERBAL STIMULI. CONFUSION NOTED. DENIES PAIN. CALL LIGHT IN REACH. WILL CONTINUE TO OBSERVE
[2020-03-19] VITALS (26 sets, daily range): BP systolic 113–168; BP diastolic 43–73
[2020-03-19 04:54] LABS: BASOPHILS 0.2 % (0-2); EOSINOPHILS 1.8 % (0-7); HEMATOCRIT 30.5 % (42.0-54.0); HEMOGLOBIN 9.2 g/dL (13.5-17.5); IMMATURE GRANULOCYTES 0.2 % (0-5); LYMPHOCYTES 4.3 % (15-50); MCHC 30.2 g/dL (31.0-37.0); MCV 89.4 fL (80.0-100.0); MEAN PLATELET VOLUME 10.3 fL (7.4-10.4); MONOCYTES 10.1 % (2-11); NEUTROPHILS 83.4 % (40-80); PLATELET COUNT 385 10x3/uL (130-400); RBC 3.41 10x6/uL (4.20-6.10); RDW 16.9 % (11.5-14.5); WBC 16.8 10x3/uL (4.8-10.8)
[2020-03-19 05:14] LABS: ANION GAP 13.1 mmol/L (8-16); CALCIUM 9.1 mg/dL (8.5-10.1); CARBON DIOXIDE 29.1 mmol/L (21.0-32.0); CREATININE - SERUM 5.8 mg/dL (0.6-1.3); POTASSIUM - SERUM 4.2 mmol/L (3.5-5.1); VANCOMYCIN - RANDOM 21.2 ug/mL (10.0-20.0)
--- NOTE | 2020-03-19 07:30 | NUR ---
ASSITED UP TO CHAIR. REQUIRES TOTAL ASSIST. ON 4L NC. DOBHOFF TO LEFT NARE IN PLACE WITH NEPRO AT 35ML/HR. NO FURTHER NEEDS AT THIS TIME. WILL CONTINUE TO MONITOR.
--- NOTE | 2020-03-19 09:19 | NUR ---
TRANSFERRED BACK TO BED BY PHYSICAL THERAPY. WAITING TO GO TO CT.
--- NOTE | 2020-03-19 09:36 | NUR ---
DR. ESTRADA ASKED TO HOLD BLOOD PRESSURE MEDS TO SEE IF A HIGHER PRESSURE WOULD HELP PT BE MORE ALERT. DR. LEWIS CALLED AND SHE SAID TO HOLD HYDRALAZINE DOSE AT THIS TIME. OKAY TO TRANSFER TO FLOOR FROM RENAL'S STAND POINT.
--- NOTE | 2020-03-19 12:21 | NUR ---
BÁRBARA WITH DR. LEWIS AND DR. ESTRADA FOR MRI.
--- NOTE | 2020-03-19 12:28 | NUR ---
SPEECH THERAPY CALLED AT THIS TIME TO SEE IF HE WAS SEEING PT TODAY. WILL GET BACK TO ME.
--- NOTE | 2020-03-19 15:20 | NUR ---
OT NOTE: ATTEMPTED EVAL IN AM, HOWEVER, PT VERY LETHARGIC; ATTEMPTED IN EARLY PM AND ST WAS WITH PT..CHECKED LATER AND PT WAS OUT FOR MRI. WILL ATTEMPT EVAL TOMORROW. HOWARD WALDROP, OTR/L
--- NOTE | 2020-03-19 17:25 | MORECARE ---
CASE MANAGEMENT DISCHARGE SUMMARY PATIENT: FLORIDALMA LIMA UNIT: [id number] ADM DATE: 03/10/20 AGE: 64 : 55 SEX: M ROOM/BED: [facility] AUTHOR: AISSATOU OLVIIA PHYSICIAN: REFERRING PHYSICIAN: ISABEL LEWIS DO DATE OF SERVICE: 03/19/20 Discharge Plan Patient Name: FLORIDALMA LIMA Facility: [facility]:[place] : 1955 Planned Disposition: Anticipated Discharge Date: Discharge Date: Expected LOS: Initial Reviewer: [email or web address] Initial Review Date: 03/08/2020 Generated: 03/19/20 6:25 pm DCPIA - Discharge Planning Initial Assessment Updated by [email or web address]: Nicole Solomon on 03/19/20 5:24 pm * Is the patient Alert and Oriented? No * How many steps to enter\exit or inside your home? * PCP ILDEFONSO * Pharmacy [facility] * Preadmission Environment Home with Family * ADLs Independent * Equipment Rolling Walker * List name and contact numbers for known caregivers / representatives who currently or will assist patient after discharge: BERTHA LIMA - SPOUSE - [phone], * Verbal permission to speak to the caregivers and representatives has been obtained from the patient. Yes * Community resources currently utilized None * Additional services required to return to the preadmission environment? No * Can the patient safely return to the preadmission environment? Yes * Has this patient been hospitalized within the prior 30 days at any hospital? No Patient Name: FLORIDALMA LIMA Page [phone] at 1725 All edits/amendments must be made on the electronic document DICTATION DATE: 03/19/201724 SENIOR CAREGIVER: EVARISTO 03/19/201724 RPT#: [id number] DC DATE: STATUS: ADM IN [facility] [address] [place] [address] END OF REPORT
--- NOTE | 2020-03-19 17:32 | MORECARE ---
CASE MANAGEMENT DISCHARGE SUMMARY PATIENT: FLORIDALMA LIMA UNIT: [id number] ADM DATE: 03/10/20 AGE: 64 : 55 SEX: M [facility] AUTHOR: NE,DOC PHYSICIAN: REFERRING PHYSICIAN: ISABEL LEWIS DO DATE OF SERVICE: 03/19/20 Discharge Plan Patient Name: FLORIDALMA LIMA Facility: [facility]:[place] : 1955 Planned Disposition: Anticipated Discharge Date: Discharge Date: Expected LOS: Initial Reviewer: [email or web address] Initial Review Date: 03/08/2020 Generated: 03/19/20 6:32 pm Comments DCP- Discharge Planning Updated by [email or web address]: Nicole Solomon on 03/19/20 4:[address] Patient Name: FLORIDALMA LIMA Admission Status: Elective Accout number: [id number] Admission Date: 03-10-2020 : 1955 Admission Diagnosis:SYNCOPE AND COLLAPSE Attending: GREG Current LOS: 9 Anticipated DC Date: Planned Disposition: Primary Insurance: [employer] POS Discharge Planning Comments: CM met with patient and daughter to complete initial dc planning assessment. CM educated patient on the CM role and verbal consent given by patient to complete assessment. Patient lives at home with family. Patient is independent. At discharge patient plans to return home and feels this is a safe discharge. CM discussed availability of home health, rehab services, and medical equipment. Patient will have family to transport home. Patient has dialysis in [place] on Wednesday and Wednesday. Patient denied known discharge needs at this time. CM will continue to follow and will assist as needed with dc plans/needs. Respiratory Practitioner: Nicole Solomon DCPIA - Discharge Planning Initial Assessment Updated by [email or web address]: Nicole Solomon on 03/19/20 5:24 pm * Is the patient Alert and Oriented? No * How many steps to enter\exit or inside your home? * PCP ILDEFONSO * Pharmacy [facility] * Preadmission Environment Home with Family * ADLs Independent * Equipment Rolling Walker * List name and contact numbers for known caregivers / representatives who currently or will assist patient after discharge: BERTHA JANIE - SPOUSE - [phone], * Verbal permission to speak to the caregivers and representatives has been obtained from the patient. Yes * Community resources currently utilized None * Additional services required to return to the preadmission environment? No * Can the patient safely return to the preadmission environment? Yes * Has this patient been hospitalized within the prior 30 days at any hospital? No Last DP export: 03/19/20 4:25 p Patient Name: FLORIDALMA LIMA Page [phone] at 1732 All edits/amendments must be made on the electronic document DICTATION DATE: 03/19/201731 GEAR DESIGN ENGINEER: EVARISTO 03/19/201731 RPT#: [id number] DC DATE: STATUS: ADM IN [facility] [address] [place] [address] END OF REPORT
--- NOTE | 2020-03-19 18:20 | NUR ---
DR. STEWART IN UNIT.
--- NOTE | 2020-03-19 19:00 | NUR ---
PT RECEIVED WITH EYES OPEN. NIECE AT BEDSIDE. CONFUSION NOTED, BUT PT CALM. TUBE FEEDING BAG CHANGED. PT REPOSITIONED. WILL CONTINUE TO OBSERVE.
--- NOTE | 2020-03-19 21:05 | NUR ---
PT RESTING WITH EYES CLOSED AND CHEST RISING. NO S/S OF DISTRESS. WILL CONTINUE TO OBSERVE.
[2020-03-20] VITALS (8 sets, daily range): BP systolic 129–174; BP diastolic 53–74
[2020-03-20 05:13] LABS: BASOPHILS 0.2 % (0-2); EOSINOPHILS 3.2 % (0-7); HEMATOCRIT 30.5 % (42.0-54.0); HEMOGLOBIN 9.1 g/dL (13.5-17.5); IMMATURE GRANULOCYTES 0.4 % (0-5); LYMPHOCYTES 2.7 % (15-50); MCH 26.5 pg (26.0-34.0); MCHC 29.8 g/dL (31.0-37.0); MCV 88.9 fL (80.0-100.0); MEAN PLATELET VOLUME 10.6 fL (7.4-10.4); MONOCYTES 9.6 % (2-11); NEUTROPHILS 83.9 % (40-80); PLATELET COUNT 410 10x3/uL (130-400); RBC 3.43 10x6/uL (4.20-6.10); RDW 16.7 % (11.5-14.5); WBC 19.4 10x3/uL (4.8-10.8)
--- NOTE | 2020-03-20 05:31 | NUR ---
PT INCONTINENT OF URINE. CHG BATH GIVEN, WITH PERICARE AND COMPLETE LINEN CHANGE. PT TOLERATED WELL. PT ABLE TO TURN TO SIDE WITH MODERATE ASSIST AND HOLD SELF. WILL CONTINUE TO OBSERVE
[2020-03-20 05:44] LABS: ANION GAP 18.5 mmol/L (8-16); CALCIUM 9.5 mg/dL (8.5-10.1); CARBON DIOXIDE 27.1 mmol/L (21.0-32.0); POTASSIUM - SERUM 4.6 mmol/L (3.5-5.1); VANCOMYCIN - RANDOM 20.4 ug/mL (10.0-20.0)
[2020-03-20 05:45] LABS: CREATININE - SERUM 7.5 mg/dL (0.6-1.3)
--- NOTE | 2020-03-20 07:46 | NUR ---
REPORT GIVEN TO RECEIVING NURSE TO RM 2101. PT TRANSFERRING VIA BED WITH PORTABLE O2
--- NOTE | 2020-03-20 07:51 | NUR ---
SPOUSE CALLED AND MADE AWARE OF TRANSFER.
--- NOTE | 2020-03-20 08:30 | NUR ---
PT HERE ICU TRANSFER
--- NOTE | 2020-03-20 12:13 | NUR ---
Nutrition Follow-up: Pt transferred to the floor. Nursing reports pt still receiving Nepro @ 35 without issue. Diet: Nepro - goal rate 35 mL/hr Wt: 189.5# (03/17); 205.1# (03/12); 197.3# (03/15) Last recorded BM: 03/16 Labs noted: K+ 4.6, Glu 299 Meds noted: Protonix, Lantus, Humulin -TF managed by MD; rec increase to goal rate of 45 mL/hr. -Monitor wt. -RD following.
--- NOTE | 2020-03-20 13:30 | NUR ---
PTS DOBHOFF CLOGGED CAN NOT FLUSH NOTIFIED
--- NOTE | 2020-03-20 15:23 | NUR ---
OT NOTE: PT COMPLETED UE PROM TOLERATED. PT EXHIBITED UE AROM WITH AUTOMATIC RESPONSES TO STIMULI. PT REQUIRED MAX A WITH POSITIONING IN BED. PT COMPLETED HAND HYGIENE WITH MAX A. 155-155 THANK YOU,JACK GONSALVES
--- NOTE | 2020-03-20 15:53 | NUR ---
I have reviewed this patient and I concur with the Shift Assessment completed by the Licensed Practical Nurse today this shift.
--- NOTE | 2020-03-20 20:47 | NUR ---
PATIENT BROUGHT TO ROOM 2305 AFTER ROSC RECIEVED IN DIALYSIS UNIT. SEE CODE SHEETS FOR MORE INFORMATION.
--- NOTE | 2020-03-20 21:35 | NUR ---
REPORT RECEIVED @190, PATIENT WAS IN DIALYSIS. MARK WILL WAS CALLED IN DIALYSIS @ 2029. THIS NURSE RESPONDED TO DIALYSIS TO FIND PATIENT UNRESPONSIVE. CPR WAS IMMEDIATELY INITIATED. ATTEMPTS TO CALL FAMILY WERE UNSUCCESSFUL. WAS FINALLY ABLE TO GET AHOLD OF PATIENT AFTER TRANSPORTING PATIENT TO ICU. WANTED CPR CONTINUED UNTIL SHE ARRIVED. PATIENT ARRIVED @ 2124. PATIENT CARE ASSUMED BY ICU NURSE.
--- NOTE | 2020-03-22 09:56 | MORECARE ---
CASE MANAGEMENT DISCHARGE SUMMARY PATIENT: FLORIDALMA LIMA UNIT: [id number] ADM DATE: 03/10/20 AGE: 64 : 55 SEX: M ROOM/BED: D.2305 AUTHOR: NE,DOC PHYSICIAN: REFERRING PHYSICIAN: ISABEL LEWIS DO DATE OF SERVICE: 03/22/20 Discharge Plan Patient Name: FLORIDALMA LIMA Facility: [facility]:[place] : 1955 Planned Disposition: Anticipated Discharge Date: Discharge Date: 03/20/2020 Expected LOS: Initial Reviewer: [email or web address] Initial Review Date: 03/08/2020 Generated: 03/22/20 10:55 am Comments DCP- Discharge Planning Updated by [email or web address]: Nicole Solomon on 03/19/20 4:[address] Patient Name: FLORIDALMA LIMA Admission Status: Elective Accout number: [id number] Admission Date: 03-10-2020 : 1955 Admission Diagnosis:SYNCOPE AND COLLAPSE Attending: GREG Current LOS: 9 Anticipated DC Date: Planned Disposition: Primary Insurance: [employer] POS Discharge Planning Comments: CM met with patient and daughter to complete initial dc planning assessment. CM educated patient on the CM role and verbal consent given by patient to complete assessment. Patient lives at home with family. Patient is independent. At discharge patient plans to return home and feels this is a safe discharge. CM discussed availability of home health, rehab services, and medical equipment. Patient will have family to transport home. Patient has dialysis in [place] on Wednesday and Wednesday. Patient denied known discharge needs at this time. CM will continue to follow and will assist as needed with dc plans/needs. Police Aide: Nicole Solomon DCPIA - Discharge Planning Initial Assessment Updated by [id number]: Nicole Solomon on 03/19/20 5:24 pm * Is the patient Alert and Oriented? No * How many steps to enter\exit or inside your home? * PCP ILDEFONSO * Pharmacy [facility] * Preadmission Environment Home with Family * ADLs Independent * Equipment Rolling Walker * List name and contact numbers for known caregivers / representatives who currently or will assist patient after discharge: BERTHA Cedeno SPOUSE - [phone], * Verbal permission to speak to the caregivers and representatives has been obtained from the patient. Yes * Community resources currently utilized None * Additional services required to return to the preadmission environment? No * Can the patient safely return to the preadmission environment? Yes * Has this patient been hospitalized within the prior 30 days at any hospital? No Last DP export: 03/19/20 4:32 p Patient Name: FLORIDALMA LIMA Page 45410 at 0956 All edits/amendments must be made on the electronic document DICTATION DATE: 03/22/20954 GERIATRIC NURSE ASSISTANT: EVARISTO 03/22/20954 RPT#: [id number] DC DATE:03/20/20 STATUS: DIS IN [facility] [address] [place] [address] END OF REPORT
== END 2020-03-20 21:00 | DRG 37 ==
LOC: D.ER 10:34 → D.M2 12:56 → OBSVTIME 13:36 → D.ICU 03-10 09:53 → D.M2 03-10 09:53 → D.CVICU 03-10 09:53 → D.ICU 03-12 08:49 → D.CVICU 03-14 12:31 → D.M2 03-20 08:05 → D.ICU 03-20 20:47
PROVIDERS: Family Medicine; Internal Medicine Nephrology; Thoracic Surgery (Cardiothoracic Vascular Surgery); ADMIT Internal Medicine; ATTEND Internal Medicine
PROC: 03UK0JZ Supplement Right Internal Carotid Artery with Synthetic Substitute, Open Approach (ICD-10-PCS; 2020-03-12)
PROC: 03CK0ZZ Extirpation of Matter from Right Internal Carotid Artery, Open Approach (ICD-10-PCS; principal; 2020-03-12 09:00)
PROC: 0BH17EZ Insertion of Endotracheal Airway into Trachea, Via Natural or Artificial Opening (ICD-10-PCS; 2020-03-20)
DX: I65.21 Occlusion and stenosis of right carotid artery (principal); N18.6 End stage renal disease; G93.41 Metabolic encephalopathy; I50.33 Acute on chronic diastolic (congestive) heart failure; J15.6 Pneumonia due to other Gram-negative bacteria; J69.0 Pneumonitis due to inhalation of food and vomit; J96.01 Acute respiratory failure with hypoxia; I13.2 Hypertensive heart and chronic kidney disease with heart failure and with stage 5 chronic kidney disease, or end stage renal disease; J44.1 Chronic obstructive pulmonary disease with (acute) exacerbation; F05 Delirium due to known physiological condition; R55 Syncope and collapse; E11.22 Type 2 diabetes mellitus with diabetic chronic kidney disease; Z99.2 Dependence on renal dialysis; D72.829 Elevated white blood cell count, unspecified; R05 Cough; H70.90 Unspecified mastoiditis, unspecified ear; B02.9 Zoster without complications; E87.5 Hyperkalemia; D63.1 Anemia in chronic kidney disease; I73.9 Peripheral vascular disease, unspecified; E11.21 Type 2 diabetes mellitus with diabetic nephropathy; E11.40 Type 2 diabetes mellitus with diabetic neuropathy, unspecified; E78.5 Hyperlipidemia, unspecified; G47.33 Obstructive sleep apnea (adult) (pediatric); H66.90 Otitis media, unspecified, unspecified ear; R40.2244 Coma scale, best verbal response, confused conversation, 24 hours or more after hospital admission; R40.2364 Coma scale, best motor response, obeys commands, 24 hours or more after hospital admission; R40.2134 Coma scale, eyes open, to sound, 24 hours or more after hospital admission; G93.89 Other specified disorders of brain; R40.2 Coma